=== PATIENT | female | born 1990 | race Caucasian/White ===

== ENCOUNTER → 2025-05-04 14:38 | Outpatient (REF) | payer OTHER, SELFPAY | LOC: PNTC 14:38 | PROVIDERS: ATTENDING PHYSICIAN Obstetrics & Gynecology | DX: Z36.0 Encounter for antenatal screening for chromosomal anomalies (principal); Z36.82 Encounter for antenatal screening for nuchal translucency | CPT/HCPCS: 36415; 76801; 76813 ==

== ENCOUNTER → 2025-07-31 08:16 | Outpatient (REF) | payer OTHER, SELFPAY ==
[2025-07-31 09:54] LABS: Hematocrit 37.2 % (37.0-47.0); Hemoglobin 12.9 g/dL (12.0-16.0); Mean Corp Hgb Conc. 34.7 g/dL (33.0-37.0); Mean Corpuscular Volume 89.2 fL (81.0-99.0); Nucleated Red Blood Cells % 0 %; Platelet Count 204 10^3/uL (130-400); Red Cell Dist. Width 12.3 % (11.5-14.5)
[2025-07-31 10:12] LABS: 1 Hour after 50gm 166 mg/dl
[2025-08-01 13:10] LABS: Syphilis/T. pallidum Ab Reflex Negative (Negative)
== END ==
LOC: REG 08:16
PROVIDERS: ATTENDING PHYSICIAN Student in an Organized Health Care Education/Training Program
DX: Z34.93 Encounter for supervision of normal pregnancy, unspecified, third trimester (principal)
CPT/HCPCS: 36415; 82950; 85025; 86780

== ENCOUNTER → 2025-08-28 06:44 | Outpatient (REF) | payer OTHER, SELFPAY ==
[2025-08-28 07:57] LABS: Glucose for Tolerance Test 86 mg/dl
[2025-08-28 11:13] LABS: Glucose for Tolerance Test 173 mg/dl
[2025-08-28 11:47] LABS: Glucose for Tolerance Test 138 mg/dl
[2025-08-28 12:22] LABS: Glucose for Tolerance Test 112 mg/dl
== END ==
LOC: REG 06:44
PROVIDERS: ATTENDING PHYSICIAN Student in an Organized Health Care Education/Training Program; FAMILY PHYSICIAN Family Medicine
DX: Z34.90 Encounter for supervision of normal pregnancy, unspecified, unspecified trimester (principal)
CPT/HCPCS: 36415; 82951

== ENCOUNTER → 2025-09-25 11:26 | Outpatient (REF) | payer OTHER, SELFPAY | LOC: PNTC 11:26 | PROVIDERS: ATTENDING PHYSICIAN Obstetrics & Gynecology | DX: O99.213 Obesity complicating pregnancy, third trimester (principal) | CPT/HCPCS: 59025; 76815 ==

== ENCOUNTER → 2025-10-02 11:32 | Outpatient (REF) | payer OTHER, SELFPAY | LOC: PNTC 11:32 | PROVIDERS: ATTENDING PHYSICIAN Obstetrics & Gynecology | DX: O99.213 Obesity complicating pregnancy, third trimester (principal); O36.8390 Maternal care for abnormalities of the fetal heart rate or rhythm, unspecified trimester, not applicable or unspecified | CPT/HCPCS: 59025; 76818 ==

== ENCOUNTER → 2025-10-09 11:21 | Outpatient (REF) | payer OTHER, SELFPAY | LOC: PNTC 11:21 | PROVIDERS: ATTENDING PHYSICIAN Obstetrics & Gynecology | DX: O99.213 Obesity complicating pregnancy, third trimester (principal) | CPT/HCPCS: 59025; 76815 ==

== ENCOUNTER → 2025-10-16 13:32 | Outpatient (REF) | payer OTHER, SELFPAY | LOC: PNTC 13:32 | PROVIDERS: ATTENDING PHYSICIAN Obstetrics & Gynecology | DX: O99.213 Obesity complicating pregnancy, third trimester (principal) | CPT/HCPCS: 59025; 76815 ==